=== PATIENT | female | born 1970 | race Caucasian/White ===

== ENCOUNTER 2018-03-18 22:13 | Emergency (ER) | payer OTHER ==
[~2018-03-18] VITALS: Ht 160 cm; Wt 81.6 kg
[2018-03-18 23:12] LABS: BASO # 0.1 x10^3/uL (0.0-0.2); BASO % 1 % (0-3); EOS # 0.3 x10^3/uL (0.0-0.7); EOS % 4 % (0-3); HEMATOCRIT 36.9 % (36.0-47.0); HEMOGLOBIN 12.6 g/dL (12.0-15.5); LYMPH # 2.2 x10^3/uL (1.0-4.8); LYMPH % 29 % (24-48); MEAN CORPUSCULAR HEMOGLOBIN 27 pg (25-35); MEAN CORPUSCULAR HGB CONC 34 g/dL (31-37); MEAN CORPUSCULAR VOLUME 79 fL (79-100); MONO # 0.4 x10^3/uL (0.0-1.1); MONO % 5 % (0-9); NEUT # 4.7 x10^3uL (1.8-7.7); NEUT % 62 % (31-73); PLATELET COUNT 186 x10^3/uL (140-400); RED CELL DISTRIBUTION WIDTH 17.7 % (11.5-14.5); WHITE BLOOD COUNT 7.6 x10^3/uL (4.0-11.0)
[2018-03-18 23:21] LABS: CALCIUM 9.2 mg/dL (8.5-10.1); CREATININE 0.9 mg/dL (0.6-1.0); GFR 66.5; POTASSIUM 3.4 mmol/L (3.5-5.1)
[2018-03-18 23:22] LABS: BILIRUBIN,URINE NEGATIVE (NEG); CLARITY,URINE CLEAR; COLOR,URINE YELLOW; NITRITE,URINE NEGATIVE (NEG); PH,URINE 5.5; PROTEIN,URINE NEGATIVE (NEG-TRACE); UROBILINOGEN,URINE 0.2 mg/dL (0.2 mg/dL)
[2018-03-18 23:28] LABS: BACTERIA,URINE 0 /HPF (0-FEW); RBC,URINE OCC /HPF (0-2); WBC,URINE OCC /HPF (0-4)
[2018-03-18 23:29] LABS: SQUAMOUS EPITHELIAL CELL,UR FEW /LPF
--- NOTE | 2018-03-18 23:49 | RAD ---
PQRS Compliance statement: One or more of the following individualized dose reduction techniques were utilized for this examination: 1. Automated exposure control. 2. Adjustment of the mA and/or kV according to patient size. 3. Use of iterative reconstruction technique. Indication:DIZZINESS, PT FEELS "NUMB" TECHNIQUE: CT head without IV contrast COMPARISON:None FINDINGS: No pathologic extra-axial or intra-axial fluid collection. The ventricles and basal cisterns are within normal limits. No acute intracranial bleed. No focal loss of shannon-white differentiation. Orbits within normal limits. No suspicious calvarial lesion. Visualized paranasal sinuses and mastoid air cells are clear. IMPRESSION: No acute intracranial process. If concern for acute ischemic stroke is high, please consider MRI brain. Electronically signed by: Wesley Lawson DO (03/18/2018 11:46 PM) [facility]
--- NOTE | 2018-03-19 00:06 | PHYS DOC ---
Past Medical History Past Medical History: Anxiety, Depression, Other Additional Past Medical Histor: sleep apnea Past Surgical History: Cholecystectomy, , Other Additional Past Surgical Histo: uterine abln, ulnar nerve mov rt arm, BIATRITIC , TUMOR RT NECK, HEART CATH Alcohol Use: Occasionally Drug Use: None Adult General Chief Complaint Chief Complaint: CHEST PAIN HPI HPI Patient is a 48 year old female who presents with states last night she started having dizziness, left-sided chest pain and just feeling like her whole body was numb and it was hard to move and some nausea last night and states it went away and came back tonight at 2100. Patient states she has not been running any kind of fever and has no recent illness. Denies any visual changes or weaknesses. Patient states she feels overall weakness. Patient states she currently has no pain but just doesn't feel right. Patient states that she does feel slightly short of air. She speaks in full sentences and speaks in clear sentences. Review of Systems Review of Systems Constitutional: Denies fever or chills [] Eyes: Denies change in visual acuity, redness, or eye pain [] HENT: Denies nasal congestion or sore throat [] Respiratory: Denies cough or shortness of breath [] Cardiovascular: No additional information not addressed in HPI [] GI: Denies abdominal pain. Nausea. Denies vomiting, bloody stools or diarrhea [] : Denies dysuria or hematuria [] Musculoskeletal: Denies back pain or joint pain [] Integument: Denies rash or skin lesions [] Neurologic: Denies headache. States generalize weakness and generalized numbness sensory changes [] All other systems were reviewed and found to be within normal limits, except as documented in this note. Allergies Allergies Allergies Coded Allergies Type Severity Reaction Last Updated Verified No Known Drug Allergies 07/22/13 No Physical Exam Physical Exam Constitutional: Well developed, well nourished, no acute distress, non-toxic appearance. [] HENT: Normocephalic, atraumatic, bilateral external ears normal, oropharynx moist, no oral exudates, nose normal. [] Eyes: PERRLA, EOMI, conjunctiva normal, no discharge. [] Neck: Normal range of motion, no tenderness, supple, no stridor. [] Cardiovascular:Heart rate regular rhythm, no murmur [] Lungs & Thorax: Bilateral breath sounds clear to auscultation [] Abdomen: Bowel sounds normal, soft, no tenderness, no masses, no pulsatile masses. [] Skin: Warm, dry, no erythema, no rash. [] Back: No tenderness, no CVA tenderness. [] Extremities: No tenderness, no cyanosis, no clubbing, ROM intact, no edema. [] Neurologic: Alert and oriented X 3, normal motor function, normal sensory function, no focal deficits noted. [] Psychologic: Affect normal, judgement normal, mood normal. [] Current Patient Data Vital Signs Vital Signs Date Time Temp Pulse Resp B/P (MAP) Pulse Ox O2 Delivery O2 Flow Rate FiO2 03/18/18 23:55 72 14 138/76 (96) 97 Room Air 03/18/18 22:13 98.1 98.1 Lab Values Laboratory Tests Test 03/18/18 22:32 03/18/18 23:10 White Blood Count 7.6 x10^3/uL (4.0-11.0) Red Blood Count 4.70 x10^6/uL (3.50-5.40) Hemoglobin 12.6 g/dL (12.0-15.5) Hematocrit 36.9 % (36.0-47.0) Mean Corpuscular Volume 79 fL (79-100) Mean Corpuscular Hemoglobin 27 pg (25-35) Mean Corpuscular Hemoglobin Concent 34 g/dL (31-37) Red Cell Distribution Width 17.7 % (11.5-14.5) H Platelet Count 186 x10^3/uL (140-400) Neutrophils (%) (Auto) 62 % (31-73) Lymphocytes (%) (Auto) 29 % (24-48) Monocytes (%) (Auto) 5 % (0-9) Eosinophils (%) (Auto) 4 % (0-3) H Basophils (%) (Auto) 1 % (0-3) Neutrophils # (Auto) 4.7 x10^3uL (1.8-7.7) Lymphocytes # (Auto) 2.2 x10^3/uL (1.0-4.8) Monocytes # (Auto) 0.4 x10^3/uL (0.0-1.1) Eosinophils # (Auto) 0.3 x10^3/uL (0.0-0.7) Basophils # (Auto) 0.1 x10^3/uL (0.0-0.2) Sodium Level 141 mmol/L (136-145) Potassium Level 3.4 mmol/L (3.5-5.1) L Chloride Level 104 mmol/L (98-107) Carbon Dioxide Level 27 mmol/L (21-32) Anion Gap 10 (6-14) Blood Urea Nitrogen 14 mg/dL (7-20) Creatinine 0.9 mg/dL (0.6-1.0) Estimated GFR (Cockcroft-Gault) 66.5 Glucose Level 106 mg/dL (70-99) H Calcium Level 9.2 mg/dL (8.5-10.1) Troponin I Quantitative < 0.017 ng/mL (0.000-0.055) Urine Collection Type Unknown Urine Color Yellow Urine Clarity Clear Urine pH 5.5 Urine Specific [place] 1.025 Urine Protein Negative mg/dL (NEG-TRACE) Urine Glucose (UA) Negative mg/dL (NEG) Urine Ketones (Stick) Negative mg/dL (NEG) Urine Blood Small (NEG) Urine Nitrite Negative (NEG) Urine Bilirubin Negative (NEG) Urine Urobilinogen Dipstick 0.2 mg/dL (0.2 mg/dL) Urine Leukocyte Esterase Negative (NEG) Urine RBC Occ /HPF (0-2) Urine WBC Occ /HPF (0-4) Urine Squamous Epithelial Cells Few /LPF Urine Bacteria 0 /HPF (0-FEW) Urine Mucus Mod /LPF Laboratory Tests 03/18/18 22:32 Laboratory Tests 03/18/18 22:32 EKG EKG Sinus Rhythm and no STEMI Interpretation Time: [address] Burch Radiology/Procedures Radiology/Procedures CT head/ Chest xray Impressions: Chest xray no acute findings and read by Dr Burch [facility] [address] [place] [address] IMAGING REPORT Signed PATIENT: MADDISON MARTÍNEZ ACCOUNT: [id number] : 1970 LOCATION: ER AGE: 48 SEX: F EXAM STATUS: REG ER ORD. PHYSICIAN: ROBERTO CHAN APRN REASON: dizziness PROCEDURE: CT HEAD WO CONTRAST PQRS Compliance statement: One or more of the following individualized dose reduction techniques were utilized for this examination: 1. Automated exposure control. 2. Adjustment of the mA and/or kV according to patient size. 3. Use of iterative reconstruction technique. Indication:DIZZINESS, PT FEELS "NUMB" TECHNIQUE: CT head without IV contrast COMPARISON:None FINDINGS: No pathologic extra-axial or intra-axial fluid collection. The ventricles and basal cisterns are within normal limits. No acute intracranial bleed. No focal loss of shannon-white differentiation. Orbits within normal limits. No suspicious calvarial lesion. Visualized paranasal sinuses and mastoid air cells are clear. IMPRESSION: No acute intracranial process. If concern for acute ischemic stroke is high, please consider MRI brain. Electronically signed by: Wesley Lawson DO (03/18/2018 11:46 PM) [facility] DICTATED and SIGNED BY: WESLEY LAWSON DO DATE: 03/18/18 9165 Course & Med Decision Making Course & Med Decision Making Patient is a 48 year old female who presents with states last night she started having dizziness, left-sided chest pain and just feeling like her whole body was numb and it was hard to move and some nausea last night and states it went away and came back tonight at 2100. Patient states she has not been running any kind of fever and has no recent illness. Denies any visual changes or weaknesses. Patient states she feels overall weakness. Patient states she currently has no pain but just doesn't feel right. Patient states that she does feel slightly short of air. She speaks in full sentences and speaks in clear sentences. Patient has equal associate counsel and strength in all extremities. Patient has no extremity edema. Her skin is pink warm and dry. Mucous membranes are moist. PERRLA. She is alert and oriented and neurologically intact. Patient states she stopped smoking a year ago. Patient currently takes Zoloft, trazodone, Pristiq, omeprazole, bariatric calcium, and iron pills. Patient states she has no known drug allergies. Patient denies a headache. Patient abdomen is soft without masses but has left lower abdominal pain with palpation. Patient's vital signs are 77 heart rate, 97% on room air, 142/79, 20 respirations. Her EKG shows sinus rhythm and no STEMI and was read by Dr. Burch. Patient ambulates and is steady on her feet as she did walk to the restroom to give a urine sample. Lungs are clear in all lobes to auscultation. Heart rate regular without murmur. Afebrile. Chest x-ray showed no acute findings and was read by Dr. Burch. Blood work shows no acute findings and urine shows no infection. CT Head is no acute intracranial process. If concern for acute ischemic stroke is high, please consider MRI brain. Heart score 1. Patient complains of anxiety. I have ordered her Hydroxyzine for dizziness and anxiety. Patient complains of chest pain at this time. Patient is discharged home and is to follow up with her primary care. Dragon Disclaimer Dragon Disclaimer This electronic medical record was generated, in whole or in part, using a voice recognition dictation system. NIHSS Stroke Scale NIH Stroke Scale: NIH Stroke Scale Response (Comments) Value Level of Consciousness: 0 Alert/Responsive 0 LOC Questions: 0 Answers both correctly 0 LOC Commands: 0 Performs both tasks 0 Best Gaze: 0 Normal 0 Visual: 0 No visual loss 0 Facial Palsy: 0 Normal, symmetrical 0 Motor - Left Arm 0 No drift 0 Motor - Right Arm 0 No drift 0 Motor - Left Leg 0 No drift 0 Motor: Right Leg 0 No drift 0 Limb Ataxia: 0 Absent 0 Sensory: 0 No loss 0 Best Language: 0 Normal 0 Dysathria: 0 Normal 0 Extinction and Inattention: 0 Normal 0 Total 0 Departure Departure Impression: Primary Impression: Dizziness Disposition: 01 HOME, SELF-CARE Condition: STABLE Referrals: CAMERON HUMPHRIES MD (PCP) Patient Instructions: Dizziness Additional Instructions: Follow up with your primary care. Return for focal weakness, loss of consciousness or increased chest pain and shortness of air. ROBERTO CHAN APRN Mar 19, 2018 00:06
[2018-03-19 01:00] VITALS: BP 118/59
[2018-03-19] MEDS ORDERED: hydrOXYzine PAMOATE 25 MG CAPSULE PO ONE (01:00)
--- NOTE | 2018-03-19 04:04 | EKG ---
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
--- NOTE | 2018-03-19 07:40 | RAD ---
Chest, 2 views, 03/18/2018: HISTORY: Chest pain The heart size and pulmonary vascularity are normal. No pulmonary infiltrate is seen. There is no evidence of pleural fluid. IMPRESSION: No acute cardiopulmonary abnormality is detected. Electronically signed by: Oliver Funk MD (03/19/2018 7:37 AM) [facility]
== END 2018-03-19 01:15 | disposition home or self-care (01) ==
LOC: ER 22:13
DX: R42 Dizziness and giddiness (principal); Z90.49 Acquired absence of other specified parts of digestive tract
CPT/HCPCS: 36415; 70450; 71046; 80048; 81001; 84484; 85025; 93005; 99285; Q0177